=== PATIENT | male | born 1955 | race Caucasian/White ===

== ENCOUNTER 2018-06-14 05:05 | Emergency (ER) | payer MEDICAID ==
[~2018-06-14] VITALS: Ht 172.7 cm; Wt 70.8 kg
[2018-06-14] MEDS ORDERED: MORPHINE SULFATE 4 MG/ML CPJ (NOT FOR IM USE) IV STA (06:15)
[2018-06-14] MEDS ORDERED: CLONIDINE 0.2MG TABLET PO ONE (06:15)
[2018-06-14] MEDS ORDERED: SODIUM CHLORIDE 0.9% 1,000 ML IV ONE (06:15)
[2018-06-14] MEDS ORDERED: ONDANSETRON HCL 4MG/2ML VIAL IV STA (06:15)
[2018-06-14 06:54] LABS: HEMATOCRIT. 45.7 % (42.0-52.0); HEMOGLOBIN. 15.7 g/dL (14.0-18.0); MEAN CORPUSCULAR VOLUME 93.1 fL (80.0-94.0); MEAN PLATELET VOLUME 11.8 fl (7.4-10.4); PLATELET 144 x1000/uL (130-400); RED BLOOD CELL COUNT 4.91 mill/uL (4.7-6.1); RED CELL DISTRIBUTION WIDTH 12.6 % (11.6-14.6)
[2018-06-14 06:58] LABS: CLARITY URINE CLEAR (CLEAR); COLOR URINE YELLOW (YELLOW); KETONES URINE NEGATIVE (NEGATIVE); LEUKOCYTE ESTERASE URINE NEGATIVE (NEGATIVE); NITRITE URINE NEGATIVE (NEGATIVE); OCCULT BLOOD URINE 1+ (NEGATIVE); PH URINE 8.5 (4.5-8.0); PROTEIN URINE TRACE (NEGATIVE); SPECIFIC GRAVITY URINE 1.016 (1.005-1.030); UROBILINOGEN URINE 0.2 E.U./dL (0.2-1.0)
[2018-06-14 07:00] LABS: CHLORIDE 101 mEq/L (98-107)
[2018-06-14 07:27] LABS: PLATELET ESTIMATE NORMAL
[2018-06-14] MEDS ORDERED: KETOROLAC 30MG/ML VIAL IV ONE (08:15)
[2018-06-14] MEDS ORDERED: HYDRALAZINE 20MG/ML VIAL IV ONE (08:15)
[2018-06-14 09:35] VITALS: BP 159/91
== END 2018-06-14 09:39 | disposition home or self-care (01) ==
LOC: ER 05:05
DX: N20.0 Calculus of kidney (principal); I10 Essential (primary) hypertension; E78.00 Pure hypercholesterolemia, unspecified
CPT/HCPCS: 36415; 74176; 80053; 81003; 83690; 85025; 93005; 96374; 96375; 99285; J0360; J1885; J2270; J2405; J7030; Z7610

== ENCOUNTER 2018-06-17 19:27 | Inpatient (IN) | payer MEDICAID ==
[~2018-06-17] VITALS: Ht 172.7 cm; Wt 70.3 kg
[2018-06-17] MEDS ORDERED: KETOROLAC 30MG/ML VIAL IV STA (20:54)
[2018-06-17] MEDS ORDERED: SODIUM CHLORIDE 0.9% 1,000 ML IV ONE (20:54)
[2018-06-17] MEDS ORDERED: CLONIDINE 0.2MG TABLET PO ONE (21:00)
[2018-06-17] MEDS ORDERED: TETRACAINE 0.5% OPHTH DROPS 4ML BOTHEYE ONE (21:15)
[2018-06-17 21:57] LABS: BASOPHILS % 0.2 % (0.0-2.0); EOSINOPHILS % 1.1 % (0.0-5.0); HEMATOCRIT. 45.9 % (42.0-52.0); HEMOGLOBIN. 16.3 g/dL (14.0-18.0); LYMPHOCYTES % 7.2 % (20.0-50.0); MEAN CORPUSCULAR HEMOGLOBIN 32.7 pg (28.0-32.0); MEAN CORPUSCULAR VOLUME 92.4 fL (80.0-94.0); MEAN PLATELET VOLUME 11.4 fl (7.4-10.4); MONOCYTES % 6.8 % (2.0-8.0); NEUTROPHILS % 84.7 % (40.0-76.0); PLATELET 150 x1000/uL (130-400); RED BLOOD CELL COUNT 4.97 mill/uL (4.7-6.1); RED CELL DISTRIBUTION WIDTH 12.3 % (11.6-14.6)
[2018-06-17 21:59] LABS: CHLORIDE 96 mEq/L (98-107)
[2018-06-17 22:00] LABS: CLARITY URINE CLEAR (CLEAR); COLOR URINE YELLOW (YELLOW); KETONES URINE NEGATIVE (NEGATIVE); LEUKOCYTE ESTERASE URINE NEGATIVE (NEGATIVE); NITRITE URINE NEGATIVE (NEGATIVE); OCCULT BLOOD URINE NEGATIVE (NEGATIVE); PH URINE 5.5 (4.5-8.0); PROTEIN URINE TRACE (NEGATIVE); SPECIFIC GRAVITY URINE 1.017 (1.005-1.030); UROBILINOGEN URINE 0.2 E.U./dL (0.2-1.0)
[2018-06-17 22:02] LABS: PARTIAL THROMBOPLASTIN TIME 27.1 sec (23.4-31.0); PROTHROMBIN TIME 9.8 sec (9.1-11.1)
[2018-06-18] VITALS (8 sets, daily range): BP systolic 121–164; BP diastolic 70–94
[2018-06-18] MEDS ORDERED: ONDANSETRON HCL 4MG/2ML INJ IV PRN (04:00)
[2018-06-18] MEDS: SODIUM CHLORIDE 0.9% 1,000 ML IV SCH ×2 (05:41→12:03)
[2018-06-18] MEDS: METOPROLOL TARTRATE 25MG TABLET PO SCH ×3 (05:41→20:24)
[2018-06-18 10:23] LABS: CLARITY URINE CLEAR (CLEAR); COLOR URINE YELLOW (YELLOW); KETONES URINE NEGATIVE (NEGATIVE); LEUKOCYTE ESTERASE URINE NEGATIVE (NEGATIVE); NITRITE URINE NEGATIVE (NEGATIVE); OCCULT BLOOD URINE NEGATIVE (NEGATIVE); PROTEIN URINE NEGATIVE (NEGATIVE); UROBILINOGEN URINE 0.2 E.U./dL (0.2-1.0)
[2018-06-18] MEDS ORDERED: PNEUMOCOCCAL 23-VAL P-SAC VAC 0.5 ML IM ONE (12:00)
[2018-06-18] MEDS ORDERED: CEFEPIME 1GM PREMIX 50 ML IV SCH (12:00)
[2018-06-18] MEDS: CEFAZOLIN 1000MG PREMIX 50 ML IV SCH ×2 (13:29→20:00)
[2018-06-18] MEDS ORDERED: CEFAZOLIN SODIUM 1000MG/VIAL IV SCH (14:00)
[2018-06-18] MEDS ORDERED: IOPAMIDOL 20 ML VIAL IT ONE (17:13)
[2018-06-18] MEDS ORDERED: PROPOFOL 200MG/20ML VIAL IV ONE (18:11)
[2018-06-18] MEDS ORDERED: FENTANYL CITRATE/PF 50MCG/ML 5ML VIAL ONE (18:11)
[2018-06-18] MEDS ORDERED: CEFAZOLIN SODIUM 1000MG/VIAL ONE (18:13)
[2018-06-18] MEDS ORDERED: LIDOCAINE HCL/PF 1% 10 MG/ML 5ML VIAL ONE (18:13)
[2018-06-18] MEDS: KETOROLAC 15MG/ML VIAL IV PRN (20:02)
[2018-06-18] MEDS: HYDROMORPHONE HCL/PF 2MG/ML CPJ IV PRN (20:19)
[2018-06-19] VITALS (10 sets, daily range): BP systolic 144–196; BP diastolic 83–107
[2018-06-19] MEDS: SODIUM CHLORIDE 0.9% 1,000 ML IV SCH ×4 (00:16→13:20)
[2018-06-19] MEDS: HYDROMORPHONE HCL/PF 2MG/ML CPJ IV PRN ×2 (00:17→08:30)
[2018-06-19 01:02] LABS: HEMATOCRIT 39.8 % (42.0-52.0); HEMOGLOBIN 13.7 g/dL (14.0-18.0); MEAN CORPUSCULAR HEMOGLOBIN 32.2 pg (28.0-32.0); MEAN CORPUSCULAR VOLUME 93.4 fL (80.0-94.0); PLATELET 138 x1000/uL (130-400); RED BLOOD CELL COUNT 4.26 mill/uL (4.7-6.1); RED CELL DISTRIBUTION WIDTH 12.4 % (11.6-14.6)
[2018-06-19] MEDS: CEFAZOLIN 1000MG PREMIX 50 ML IV SCH ×2 (04:42→12:55)
[2018-06-19 07:24] LABS: BASOPHILS % 0.1 % (0.0-2.0); EOSINOPHILS % 1.5 % (0.0-5.0); HEMATOCRIT. 38.5 % (42.0-52.0); HEMOGLOBIN. 13.4 g/dL (14.0-18.0); LYMPHOCYTES % 7.2 % (20.0-50.0); MEAN CORPUSCULAR HEMOGLOBIN 32.7 pg (28.0-32.0); MEAN CORPUSCULAR VOLUME 93.7 fL (80.0-94.0); MEAN PLATELET VOLUME 10.6 fl (7.4-10.4); MONOCYTES % 5.7 % (2.0-8.0); NEUTROPHILS % 85.5 % (40.0-76.0); PLATELET 126 x1000/uL (130-400); RED CELL DISTRIBUTION WIDTH 12.1 % (11.6-14.6)
[2018-06-19] MEDS: METOPROLOL TARTRATE 25MG TABLET PO SCH (08:30)
[2018-06-19] MEDS: KETOROLAC 15MG/ML VIAL IV PRN (13:56)
[2018-06-19] MEDS ORDERED: METOPROLOL TARTRATE 25MG TABLET PO NR (16:15)
[2018-06-19] MEDS ORDERED: AMLODIPINE 5MG TABLET PO NR (16:15)
[2018-06-19] MEDS ORDERED: HYDR-4086 PO (17:32)
[2018-06-19] MEDS ORDERED: AMLO5TAB4 PO (17:33)
[2018-06-19] MEDS ORDERED: ATOR10TA PO (17:35)
[2018-06-19] MEDS ORDERED: LOPHC2 PO (17:35)
[2018-06-19] MEDS ORDERED: CLONIDINE 0.1MG TABLET PO NR (19:49)
[2018-06-20] MEDS ORDERED: METOPROLOL TARTRATE 25MG TABLET PO SCH (06:00)
== END 2018-06-19 21:35 | disposition home or self-care (01) | DRG 465 ==
LOC: ER 19:27 → 8WST 23:49 → ENRESERV 06-18 00:37
PROVIDERS: ADMIT Internal Medicine; ATTEND Internal Medicine
PROC: 0TF68ZZ Fragmentation in Right Ureter, Via Natural or Artificial Opening Endoscopic (ICD-10-PCS; 2018-06-18)
PROC: 0T768DZ Dilation of Right Ureter with Intraluminal Device, Via Natural or Artificial Opening Endoscopic (ICD-10-PCS; principal; 2018-06-18 17:00)
DX: N13.2 Hydronephrosis with renal and ureteral calculous obstruction (principal); N17.9 Acute kidney failure, unspecified; I12.9 Hypertensive chronic kidney disease with stage 1 through stage 4 chronic kidney disease, or unspecified chronic kidney disease; E87.1 Hypo-osmolality and hyponatremia; H57.10 Ocular pain, unspecified eye; M10.9 Gout, unspecified; N18.9 Chronic kidney disease, unspecified; Z91.19 Patient's noncompliance with other medical treatment and regimen
CPT/HCPCS: 36415; 70450; 71045; 74176; 74430; 80048; 80053; 80061; 81003; 83036; 83690; 84443; 84484; 84550; 85025; 85027; 85610; 85730; 90732; 93005; 96361; 96374; 99285; C2617; J0690; J0692; J1170; J1885; J2704; J3010; J3490; J7030; Q9966

== ENCOUNTER 2018-08-31 00:48 | Inpatient (IN) | payer MEDICAID ==
[~2018-08-31] VITALS: Ht 165.1 cm; Wt 73.5 kg
[~2018-08-31 00:48] MED LIST: AMLO5TAB4 PO; ATOR10TA PO; HYDR-4086 PO; LOPHC2 PO
[2018-08-31] MEDS ORDERED: KETOROLAC 30MG/ML VIAL IV STA (01:44)
[2018-08-31 02:25] LABS: HEMATOCRIT. 42.3 % (42.0-52.0); HEMOGLOBIN. 14.8 g/dL (14.0-18.0); MEAN CORPUSCULAR HEMOGLOBIN 32.2 pg (28.0-32.0); MEAN CORPUSCULAR VOLUME 91.8 fL (80.0-94.0); MEAN PLATELET VOLUME 11.1 fl (7.4-10.4); PLATELET 133 x1000/uL (130-400); RED BLOOD CELL COUNT 4.61 mill/uL (4.7-6.1); RED CELL DISTRIBUTION WIDTH 12.6 % (11.6-14.6)
[2018-08-31 02:31] LABS: CHLORIDE 101 mEq/L (98-107)
[2018-08-31 02:58] LABS: CLARITY URINE CLEAR (CLEAR); COLOR URINE YELLOW (YELLOW); KETONES URINE NEGATIVE (NEGATIVE); LEUKOCYTE ESTERASE URINE NEGATIVE (NEGATIVE); NITRITE URINE NEGATIVE (NEGATIVE); OCCULT BLOOD URINE 2+ (NEGATIVE); PROTEIN URINE NEGATIVE (NEGATIVE); SPECIFIC GRAVITY URINE 1.013 (1.005-1.030); UROBILINOGEN URINE 0.2 E.U./dL (0.2-1.0)
[2018-08-31] MEDS ORDERED: MORPHINE SULFATE 4 MG/ML CPJ (NOT FOR IM USE) IV ONE (03:15)
[2018-08-31] MEDS ORDERED: SODIUM CHLORIDE 0.9% 1,000 ML IV ONE (03:15)
[2018-08-31 03:23] LABS: PLATELET ESTIMATE NORMAL
[2018-08-31 06:00] VITALS: BP 154/81
[2018-08-31 06:53] VITALS: BP 154/81
[2018-08-31 08:00] VITALS: BP 129/73
[2018-08-31] MEDS ORDERED: ONDANSETRON HCL 4MG/2ML INJ IV PRN (09:30)
[2018-08-31] MEDS ORDERED: PIPERACILLIN/TAZ 3.375G PREMIX 50 ML IV SCH (09:30)
[2018-08-31] MEDS ORDERED: ACETAMINOPHEN 325MG TABLET PO PRN (09:30)
[2018-08-31] MEDS ORDERED: ENOXAPARIN 40MG/0.4ML SYR SUBCUT SCH (09:30)
[2018-08-31] MEDS ORDERED: HYDROCODONE/ACETAMINOPHEN 5/325MG TABLET PO PRN (09:30)
[2018-08-31] MEDS: AMLODIPINE 5MG TABLET PO SCH (10:41)
[2018-08-31] MEDS: ENOXAPARIN 30MG/0.3ML SYR SUBCUT SCH (10:42)
[2018-08-31] MEDS ORDERED: PIPERACILLIN/TAZ 2.25G PREMIX 50 ML IV SCH (11:00)
[2018-08-31] MEDS: DEXT 5%/0.45% NACL 1000ML 1,000 ML IV SCH ×2 (11:04→19:42)
[2018-08-31 12:00] VITALS: BP 114/62
[2018-08-31 16:00] VITALS: BP 130/75
[2018-08-31] MEDS ORDERED: MORPHINE SULFATE 4 MG/ML CPJ (NOT FOR IM USE) IV PRN (17:01)
[2018-08-31] MEDS ORDERED: LEVOFLOXACIN 250MG PREMIX 50 ML IV SCH (18:00)
[2018-08-31 20:00] VITALS: BP 95/62
[2018-09-01] VITALS: BP 132/76
[2018-09-01 04:00] VITALS: BP 135/77
[2018-09-01] MEDS: DEXT 5%/0.45% NACL 1000ML 1,000 ML IV SCH ×2 (04:55→15:37)
[2018-09-01 06:20] LABS: BASOPHILS % 0.6 % (0.0-2.0); EOSINOPHILS % 3.6 % (0.0-5.0); HEMATOCRIT. 39.7 % (42.0-52.0); HEMOGLOBIN. 14.1 g/dL (14.0-18.0); LYMPHOCYTES % 21.2 % (20.0-50.0); MEAN CORPUSCULAR HEMOGLOBIN 32.6 pg (28.0-32.0); MEAN CORPUSCULAR VOLUME 91.5 fL (80.0-94.0); MEAN PLATELET VOLUME 11.2 fl (7.4-10.4); MONOCYTES % 8.2 % (2.0-8.0); NEUTROPHILS % 66.4 % (40.0-76.0); PLATELET 123 x1000/uL (130-400); RED BLOOD CELL COUNT 4.33 mill/uL (4.7-6.1); RED CELL DISTRIBUTION WIDTH 12.6 % (11.6-14.6)
[2018-09-01 06:45] LABS: CHLORIDE 102 mEq/L (98-107)
[2018-09-01 07:05] LABS: LDL CHOLESTEROL 113 mg/dL (5-100)
[2018-09-01 07:06] LABS: HDL CHOLESTEROL 38 mg/dL (40-59)
[2018-09-01 08:00] VITALS: BP 154/85
[2018-09-01] MEDS: ENOXAPARIN 30MG/0.3ML SYR SUBCUT SCH (08:53)
[2018-09-01] MEDS: AMLODIPINE 5MG TABLET PO SCH (08:53)
[2018-09-01] MEDS ORDERED: PNEUMOCOCCAL 23-VAL P-SAC VAC 0.5 ML IM ONE (09:00)
[2018-09-01 12:00] VITALS: BP 135/76
[2018-09-01 16:43] VITALS: BP 145/89
[2018-09-01] MEDS ORDERED: LEVOFLOXACIN 500MG PREMIX 100 ML IV SCH (18:00)
[2018-09-02] MEDS ORDERED: ENOXAPARIN 40MG/0.4ML SYR SUBCUT SCH (09:00)
== END 2018-09-01 17:05 | disposition home or self-care (01) | DRG 465 ==
LOC: ER 00:48 → 6EST 03:13 → ENRESERV 04:17
PROVIDERS: ADMIT Internal Medicine; ATTEND Internal Medicine
DX: N13.2 Hydronephrosis with renal and ureteral calculous obstruction (principal); D72.829 Elevated white blood cell count, unspecified; I12.9 Hypertensive chronic kidney disease with stage 1 through stage 4 chronic kidney disease, or unspecified chronic kidney disease; K40.90 Unilateral inguinal hernia, without obstruction or gangrene, not specified as recurrent; E78.5 Hyperlipidemia, unspecified; N18.9 Chronic kidney disease, unspecified; Z79.899 Other long term (current) drug therapy; Z87.442 Personal history of urinary calculi
CPT/HCPCS: 36415; 74176; 76770; 80061; 84550; 90732; 96361; 96374; 96375; 99285; J1650; J1885; J1956; J2270; J2543; J3490; J7030